=== PATIENT | female | born 1995 | race Caucasian/White ===

== ENCOUNTER 2023-06-01 13:36 | Outpatient (CLI) | payer BC, SELFPAY ==
--- NOTE | 2023-06-01 14:00 | US_ITS ---
Patient: ISAEL DE LOS SANTOS Facility:?[facility] RIS Patient ID:?[id number] Site Patient ID:?[id number]. Site :?[id number] Study:?US-OB Pelvis TRANSVAGINAL-06/01/2023 2:18:38 PM Ordering Physician:?NIURKA TAPIA Final Report: INDICATION: First trimester scan, establish dates. COMPARISON: None. TECHNIQUE: Real-time coates-scale imaging of the pelvis was performed. FINDINGS: Sonographic imaging demonstrates a single living intrauterine gestation. The embryo demonstrates a regular cardiac rate measuring 176 beats per minute. The embryo`s crown-rump length measurement of 2.5 cm corresponds to a gestational age of 9 weeks 2 days with a sonographic due date of 01/02/2024. There is a normal-appearing yolk sac. There are no gross abnormalities noted within the embryo at this early state of development. The gestational sac has a normal appearance. There is a 3.7 x 1.8 x 1.9 cm perigestational hemorrhage. The amount of fluid within the sac appears appropriate for gestational age. The cervix is closed. The myometrium appears normal. The ovaries are of normal size. Corpus luteal cyst left ovary measuring 2.2 cm. There are no suspicious fluid collections noted in the cul-de-sac. IMPRESSION: Gestational age calculated at 9 weeks 2 days with a sonographic due date of 01/02/2024. Lower uterine segment subchorionic hemorrhage measuring 3.7 x 1.8 x 1.9 cm. Dictated by Raoul Cadena MD @ 06/02/2023 8:50:11 AM Signed by:?Raoul Cadena MD @06/02/2023 8:50:11 AM (Electronic Signature)
== END 2023-06-01 13:37 | disposition home or self-care (01) ==
LOC: US 13:37
PROVIDERS: PCP Family Medicine; Visit Provider Advanced Practice Midwife
DX: Z34.91 Encounter for supervision of normal pregnancy, unspecified, first trimester (principal); O20.9 Hemorrhage in early pregnancy, unspecified; Z3A.09 9 weeks gestation of pregnancy
CPT/HCPCS: 76817; 87491; 87591

== ENCOUNTER 2023-06-09 09:41 | Outpatient (CLI) | payer BC, SELFPAY | END 2023-06-09 09:42 | disposition home or self-care (01) | LOC: NFLDREF 06-10 05:56 | PROVIDERS: PCP Family Medicine; Referring Provider Family Medicine; Visit Provider Advanced Practice Midwife | DX: Z34.91 Encounter for supervision of normal pregnancy, unspecified, first trimester (principal) | CPT/HCPCS: 82565; 82570; 84156; 84450; 84460; 84520; 86592; 86703; 86704; 86706; 86762; 86787; 86803; 86850; 86900; 86901; 87086; 87340 ==

== ENCOUNTER 2023-07-29 10:41 | Outpatient (CLI) | payer BC, SELFPAY | END 2023-07-29 10:42 | disposition home or self-care (01) | LOC: NFLDREF 10:42 | PROVIDERS: PCP Family Medicine; Visit Provider Obstetrics & Gynecology | DX: Z34.92 Encounter for supervision of normal pregnancy, unspecified, second trimester (principal); Z3A.17 17 weeks gestation of pregnancy | CPT/HCPCS: 81511 ==

== ENCOUNTER 2023-08-26 12:51 | Outpatient (CLI) | payer BC, SELFPAY ==
--- NOTE | 2023-08-26 13:00 | CRLHL7_ITS ---
For Patients: As a result of the Century Cures Act, medical imaging exams and procedure reports are released immediately into your electronic medical record. You may view this report before your referring provider. If you have questions, please contact your health care provider. INDICATION: Evaluate anatomy. COMPARISON: 06/01/2023 TECHNIQUE: Real time coates scale imaging of the fetus was performed as well as color Doppler analysis of the umbilical vessels. FINDINGS: Sonographic imaging demonstrates a single living intrauterine gestation. Fetus demonstrates a regular cardiac rate of 144 beats per minute. Fetus has a variable position. The placenta lies anteriorly without evidence of placenta previa. Placental edge 5.1 cm from the internal cervical os. Amniotic fluid volume appears normal. Single deepest vertical pocket: 4.0 cm. The cervix is closed and measures 4.6 cm in length. The composite ultrasound gestational age is calculated at 21 weeks 4 days with an estimated sonographic due date of 01/02/2024. The estimated weight is 439 grams which lies at the 71st %. The following biometric measurements were obtained: Biparietal diameter: 5.2 cm/21 weeks 5 days 69th% Head circumference: 19.6 cm/21 weeks 6 days 70th% Abdominal circumference: 16.1 cm/21 weeks 1 day 44th% Femur length: 3.8 cm/22 weeks 1 day 75th% The HC/AC ratio measures: 1.22 range (1.06-1.24) On anatomic survey, there is a normal appearance of the cerebral ventricles, cavum septi pellucidi, cisterna magna and cerebellum. The nose, lips, and facial profile appear normal. The cervical, thoracic and lumbar spine are well visualized and appear normal. There is a normal four-chamber heart view and the left and right ventricular outflow tracts appear normal. The diaphragm and stomach appear normal. The kidneys and bladder also appear normal. There is a normal three-vessel cord and cord insertion site. The four extremities appear normal. IMPRESSION: Normal OB ultrasound exam with concordance of clinical and sonographic dating. No intrinsic abnormalities noted on anatomic survey. Dictated by Raoul Cadena MD @ 08/28/2023 7:10:38 AM (Electronically Signed)
== END 2023-08-26 12:52 | disposition home or self-care (01) ==
LOC: US 12:51
PROVIDERS: PCP Family Medicine; Visit Provider Obstetrics & Gynecology
DX: Z34.92 Encounter for supervision of normal pregnancy, unspecified, second trimester (principal); Z3A.21 21 weeks gestation of pregnancy
CPT/HCPCS: 76805; 82570; 84156

== ENCOUNTER 2023-09-08 09:52 | Outpatient (CLI) | payer BC, SELFPAY | END 2023-09-08 09:53 | disposition home or self-care (01) | PROVIDERS: PCP Family Medicine; Visit Provider Obstetrics & Gynecology | DX: Z34.92 Encounter for supervision of normal pregnancy, unspecified, second trimester (principal); R10.11 Right upper quadrant pain; Z3A.23 23 weeks gestation of pregnancy | CPT/HCPCS: 82150; 83690; 84450; 84460 ==

== ENCOUNTER 2023-10-06 12:59 | Outpatient (CLI) | payer BC, SELFPAY | END 2023-10-06 13:00 | disposition home or self-care (01) | LOC: NFLDREF 10-11 11:07 | PROVIDERS: PCP Family Medicine; Referring Provider Family Medicine; Visit Provider Obstetrics & Gynecology | DX: Z34.82 Encounter for supervision of other normal pregnancy, second trimester (principal) | CPT/HCPCS: 86592 ==

== ENCOUNTER 2023-11-10 09:35 | Outpatient (CLI) | payer BC, SELFPAY ==
--- NOTE | 2023-11-10 09:45 | CRLHL7_ITS ---
For Patients: As a result of the Century Cures Act, medical imaging exams and procedure reports are released immediately into your electronic medical record. You may view this report before your referring provider. If you have questions, please contact your health care provider. HISTORY: Pre-existing hypertension. COMPARISON: Ob ultrasound from 08/26/2023. TECHNIQUE: Ultrasound examination of the is performed with transabdominal technique. A biophysical profile is also performed. FINDINGS: A single intrauterine gestation is seen in cephalic presentation with regular cardiac activity at 123 beats per minute. The placenta is anterior and is free of the cervical os. The placental grade is 0. The amniotic fluid volume is now increased. Single deepest vertical pocket: Mildly increased at 8.6 cm. TONYA: Mildly increased at 23.4 cm BPD: 8.7 cm 35 weeks 1 day HC: 32.4 cm 36 weeks 5 days AC: 30.6 cm 34 weeks 4 days. Greater than the 97th percentile FL: 6.2 cm 31 weeks 6 days The estimated age by ultrasound is 34 weeks 4 days, with an estimated date of delivery of 12/18/2023. This represents an increase in range of great compared with the clinical age of 32 weeks 0 days. The estimated date of delivery has advanced by 15 days compared to the previous ultrasound. The ultrasound ratios are normal. The estimated weight of 2400 grams is at the 95th percentile, representing new macrosomia. The biophysical profile score is 8/8, with no points off. IMPRESSION: 1. Single intrauterine gestation in cephalic presentation with regular cardiac activity. 2. Estimated gestational age is 34 weeks 4 days. 3. There has been an increase in rate of growth, with the estimated date of delivery advancing by 15 days. 4. Estimated weight of 2400 grams is at the 95th percentile, representing new macrosomia. 5. The biophysical profile score is 8/8, with no points off. Dictated by Jarred Fofana MD @ 11/10/2023 11:07:28 PM (Electronically Signed)
== END 2023-11-10 09:36 | disposition home or self-care (01) ==
LOC: US 09:35
PROVIDERS: PCP Family Medicine; Visit Provider Obstetrics & Gynecology
DX: O10.913 Unspecified pre-existing hypertension complicating pregnancy, third trimester (principal); O36.63X0 Maternal care for excessive fetal growth, third trimester, not applicable or unspecified; Z3A.35 35 weeks gestation of pregnancy
CPT/HCPCS: 76816; 76819; 82565; 82570; 84156; 84450; 84460; 84520

== ENCOUNTER 2023-11-17 09:41 | Outpatient (CLI) | payer BC, SELFPAY ==
--- NOTE | 2023-11-17 09:45 | CRLHL7_ITS ---
For Patients: As a result of the Century Cures Act, medical imaging exams and procedure reports are released immediately into your electronic medical record. You may view this report before your referring provider. If you have questions, please contact your health care provider. INDICATION: Hypertension COMPARISON: 11/10/2023 TECHNIQUE: Real time coates scale imaging of the fetus was performed. Without non-stress testing. FINDINGS: Sonographic imaging demonstrates a single living intrauterine gestation. Fetus demonstrates a regular cardiac rate of 134 beats per minute. Fetus has a transverse position, head maternal right. The amniotic fluid volume single deepest pocket measurement of 10.0 cm. TONYA 19.3 cm. The fetus was active and demonstrated normal breathing movements. There was normal flexion and extension of the trunk and extremities. IMPRESSION: Normal biophysical profile score of 8 out of 8. SDP 10.0 cm. TONYA 19.3 cm. Dictated by Raoul Cadena MD @ 11/17/2023 10:49:44 AM (Electronically Signed)
== END 2023-11-17 09:42 | disposition home or self-care (01) ==
LOC: US 09:41
PROVIDERS: PCP Family Medicine; Visit Provider Obstetrics & Gynecology
DX: O10.919 Unspecified pre-existing hypertension complicating pregnancy, unspecified trimester (principal)
CPT/HCPCS: 76819; 82565; 82570; 84156; 84450; 84460; 84520

== ENCOUNTER 2023-11-24 09:44 | Outpatient (CLI) | payer BC, SELFPAY ==
--- NOTE | 2023-11-24 09:45 | CRLHL7_ITS ---
For Patients: As a result of the Century Cures Act, medical imaging exams and procedure reports are released immediately into your electronic medical record. You may view this report before your referring provider. If you have questions, please contact your health care provider. INDICATION: Hypertension COMPARISON: 11/17/2023 TECHNIQUE: Real time coates scale imaging of the fetus was performed. Without non-stress testing. FINDINGS: Sonographic imaging demonstrates a single living intrauterine gestation. Fetus demonstrates a regular cardiac rate of 128 beats per minute. Fetus has a vertex position. The amniotic fluid volume appears normal and there is a single deepest pocket measurement of 7.1 cm. The fetus was active and demonstrated normal breathing movements. There was normal flexion and extension of the trunk and extremities. IMPRESSION: Normal biophysical profile score of 8 out of 8. Dictated by Raoul Cadena MD @ 11/24/2023 4:10:06 PM (Electronically Signed)
== END 2023-11-24 09:45 | disposition home or self-care (01) ==
LOC: US 09:44
PROVIDERS: PCP Family Medicine; Visit Provider Obstetrics & Gynecology
DX: O10.919 Unspecified pre-existing hypertension complicating pregnancy, unspecified trimester (principal)
CPT/HCPCS: 76819; 82565; 82570; 84156; 84450; 84460; 84520

== ENCOUNTER 2023-11-30 09:45 | Emergency (ER) | payer BC, SELFPAY ==
[2023-11-30 10:01] VITALS: BP 124/83; PULSE 99; RESP 18; TEMP 36.8; O2SAT 97; BMI 43.2
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
[2023-11-30 11:41] LABS: PCR FLU A Negative PCR FLU A (Negative); PCR FLU B Negative PCR FLU B (Negative); PCR RSV Negative PCR RSV (Negative); SARS PCR* Negative SARS-CoV-2 (Negative)
--- NOTE | 2023-11-30 15:40 | PC.OBNST ---
NST Note NST Note Start: 11/30/23 15:23 Freq: ONCE Status: Active Protocol: Document 11/30/23 11:50 J[facility] (Rec: 11/30/23 15:40 J[facility] Desktop) NST Note 4 Para (# of births) 2 EDC 12/05/23 Gestational Age In Weeks & Days 39 Weeks & 2 Days High Risk Factors High Blood Pressure - Preexisting Patient Presented with Complaint(s) of Other Other Complaints Pt. here for respiratory symptoms. Some abd discomfort with coughing. Reviewed [employer] with pt. she states she has an daniel on her phone. Reactive Yes Appropriate for Gestational Age Yes RODRIGO Anne RN Date 11/30/23 Reactive Yes Appropriate for Gestational Age Yes RODRIGO Zapata RNC Date 11/30/23 OB NST charge Yes Complete NST Note via Write Note Yes The provider's electronic signature indicates the NST is reactive/appropriate for gestational age. *Note to provider: If an addendum is required, open the patient's chart and click on the note under the Nurse/Allied Health tab.
== END 2023-11-30 12:06 | disposition home or self-care (01) ==
PROVIDERS: Emergency Provider Family Medicine
DX: R05.9 Cough, unspecified (principal); Z33.1 Pregnant state, incidental; Z3A.35 35 weeks gestation of pregnancy
CPT/HCPCS: 59025; 87631; 99283; 99284

== ENCOUNTER 2023-12-02 09:14 | Outpatient (CLI) | payer BC, SELFPAY ==
--- NOTE | 2023-12-02 09:15 | CRLHL7_ITS ---
For Patients: As a result of the Century Cures Act, medical imaging exams and procedure reports are released immediately into your electronic medical record. You may view this report before your referring provider. If you have questions, please contact your health care provider. INDICATION: Hypertension COMPARISON: 11/24/2023 TECHNIQUE: Real time coates scale imaging of the fetus was performed. Without non-stress testing. FINDINGS: Sonographic imaging demonstrates a single living intrauterine gestation. Fetus demonstrates a regular cardiac rate of 137 beats per minute. Fetus has a vertex position. The amniotic fluid volume appears normal and there is a single deepest pocket measurement of 6.8 cm. The fetus was active and demonstrated normal breathing movements. There was normal flexion and extension of the trunk and extremities. IMPRESSION: Normal biophysical profile score of 8 out of 8. Dictated by Raoul Cadena MD @ 12/04/2023 10:16:18 PM (Electronically Signed)
== END 2023-12-02 09:15 | disposition home or self-care (01) ==
LOC: US 09:14
PROVIDERS: Visit Provider Obstetrics & Gynecology
DX: O10.919 Unspecified pre-existing hypertension complicating pregnancy, unspecified trimester (principal)
CPT/HCPCS: 76819; 82565; 82570; 84156; 84450; 84460; 84520

== ENCOUNTER 2023-12-09 09:00 | Outpatient (CLI) | payer BC, SELFPAY ==
--- NOTE | 2023-12-09 09:15 | CRLHL7_ITS ---
For Patients: As a result of the Century Cures Act, medical imaging exams and procedure reports are released immediately into your electronic medical record. You may view this report before your referring provider. If you have questions, please contact your health care provider. INDICATION: HTN TECHNIQUE: Real time coates scale imaging of the fetus was performed. COMPARISON: 12/02/2023 FINDINGS: Sonographic imaging demonstrates a single living intrauterine gestation. Fetus demonstrates a regular cardiac rate of 127 beats per minute. Fetus has a vertex position. The placenta lies anteriorly. Amniotic fluid volume appears normal and there is a single deepest pocket of 6.4 cm. The estimated weight is 3173gm which lies at the 82nd %. On the prior OB ultrasound dated 11/10/2023 the estimated weight was at the 95th percentile. BPD greater than 97th percentile. HC 94th percentile. AC is 78th percentile. FL 58th percentile. The fetus was active and demonstrated normal breathing movements. There was normal flexion and extension of the trunk and extremities. IMPRESSION: Normal biophysical profile score 8/8. Sonographic gestational age 38 weeks 0 days and a sonographic due date of 12/23/2023. Sonographic age 13 days ahead of the clinical age. Estimated weight 82nd percentile. Abdominal circumference 78th percentile. BPD greater than 97th percentile. Dictated by Raoul Cadena MD @ 12/09/2023 10:46:32 AM (Electronically Signed)
== END 2023-12-09 09:01 | disposition home or self-care (01) ==
LOC: US 09:00
PROVIDERS: Visit Provider Obstetrics & Gynecology
DX: O10.913 Unspecified pre-existing hypertension complicating pregnancy, third trimester (principal); Z3A.38 38 weeks gestation of pregnancy
CPT/HCPCS: 76816; 76819; 82565; 82570; 84156; 84450; 84460; 84520; 87081; 87653

== ENCOUNTER 2023-12-11 23:10 | Outpatient (CLI) | payer BC, SELFPAY ==
[2023-12-11] VITALS (10 sets, daily range): BP systolic 155–161; BP diastolic 74–86; PULSE 76–87; O2SAT 95–98
[2023-12-11 23:57] LABS: Hematocrit 33.9 % (33.0-51.0); Mean Corpuscular HGB Conc 32 gm/dL (32-36); Mean Corpuscular Hemoglobin 25 pg (26-34); Mean Corpuscular Volume 76 fL (80-100); Platelet Count* 272 K/uL (140-440); Red Blood Count 4.47 m/uL (4.00-5.20); White Blood Count* 10.61 K/uL (4.50-11.00)
[2023-12-11 23:59] LABS: Slide Review Reflex No
[2023-12-12] VITALS (36 sets, daily range): BP systolic 108–147; BP diastolic 62–81; PULSE 73–96; O2SAT 98–99
[2023-12-12] MEDS: LABETALOL HCL 100 MG TABLET 200 MG PO (00:04)
[2023-12-12 00:14] LABS: Alanine Aminotransferase* 22 U/L (4-35); Aspartate Amino Transferase* 31 U/L (12-35); Blood Urea Nitrogen* 7 mg/dL (5-24); Creatinine* 0.5 mg/dL (0.5-1.5); Estimated Glomerular Filt Rate 131 ml/min
[2023-12-12 00:15] LABS: Creatinine Urine 130.1 mg/dL; Protein Creatinine Ratio Urine 0.06 (0-0.19); Total Protein Urine 8 mg/dL
--- NOTE | 2023-12-12 01:19 | CRLHL7_ITS ---
For Patients: As a result of the Century Cures Act, medical imaging exams and procedure reports are released immediately into your electronic medical record. You may view this report before your referring provider. If you have questions, please contact your health care provider. Indication: Difficult to monitor fetus Technique: Transabdominal pelvic ultrasound with evaluation of and maternal anatomy. Grayscale and color Doppler imaging utilized. Comparison: Ob ultrasound performed 3 days prior Findings: Single live intrauterine gestation noted. heart rate measures 112-133 bpm. Anterior placenta. Vertex fetus. BPP 8/8. Cervix not visualized. 6.4 centimeter largest amniotic fluid pocket. Impression: Single live intrauterine gestation. BPP 8/8. Dictated by Graeme Stratton MD @ 12/12/2023 3:11:33 AM (Electronically Signed)
--- NOTE | 2023-12-12 02:52 | PC.OBNST ---
NST Note NST Note Start: 12/11/23 23:13 Freq: ONCE Status: Active Protocol: Document 12/12/23 02:48 [facility] (Rec: 12/12/23 02:52 [facility] Desktop) NST Note 4 Para (# of births) 2 EDC 01/05/24 Gestational Age In Weeks & Days 36 Weeks & 4 Days High Risk Factors High Blood Pressure - Gestational Patient Presented with Complaint(s) of Headache Other Complaints Patient seen in triage for headache, RUQ pain, elevated BP's. Patient did not take evening dose of Labetalol, headache resolved. Reactive Yes Appropriate for Gestational Age Yes RODRIGO Pereyra RN Date 12/12/23 Reactive Yes Appropriate for Gestational Age Yes RODRIGO Paz MD reviewed FHR strip, BPP 10/05 Date 12/12/23 OB NST charge Yes Complete NST Note via Write Note Yes The provider's electronic signature indicates the NST is reactive/appropriate for gestational age. *Note to provider: If an addendum is required, open the patient's chart and click on the note under the Nurse/Allied Health tab.
== END 2023-12-12 02:35 | disposition home or self-care (01) ==
LOC: OB OUT 23:10 → OB 23:12
PROVIDERS: Visit Provider Obstetrics & Gynecology
DX: O13.3 Gestational [pregnancy-induced] hypertension without significant proteinuria, third trimester (principal); O26.893 Other specified pregnancy related conditions, third trimester; R51.9 Headache, unspecified; Z3A.36 36 weeks gestation of pregnancy
CPT/HCPCS: 36415; 59025; 76819; 82565; 82570; 84156; 84450; 84460; 84520; 85027; G0463; A9270

== ENCOUNTER 2023-12-15 17:43 | Inpatient (IN) | payer BC, SELFPAY ==
[2023-12-15] VITALS (8 sets, daily range): BP systolic 111–162; BP diastolic 60–85; PULSE 86–114; RESP 17; TEMP 36.6–36.8; O2SAT 97; BMI 43.4
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
[2023-12-15 19:14] LABS: Basophils Absolute Auto 0.03 K/uL (0.00-0.30); Basophils Percent Auto 0.3 % (0.0-3.0); Eosinophils Absolute Auto 0.09 K/uL (0.00-0.50); Eosinophils Percent Auto 0.9 % (0.0-7.0); Hematocrit 34.2 % (33.0-51.0); Hemoglobin* 11.1 gm/dL (12.0-16.0); Immature Granulocytes Abs Auto 0.07 K/uL (0.00-0.30); Immature Granulocytes Pct Auto 0.7 %; Lymphocytes Percent Auto 18.8 % (20-44); Mean Corpuscular HGB Conc 33 gm/dL (32-36); Mean Corpuscular Hemoglobin 25 pg (26-34); Mean Corpuscular Volume 76 fL (80-100); Monocytes Percent Auto 5.5 % (0.0-11.0); Neutrophils Percent Auto 73.8 % (42.0-72.0); Platelet Count* 270 K/uL (140-440); RDW Coefficient of Variation % 15.9 % (11.5-15.5); White Blood Count* 10.44 K/uL (4.50-11.00)
[2023-12-15 19:20] LABS: Slide Review Reflex No
[2023-12-15] MEDS: LACTATED RINGERS 1000 ML 1,000 ML 30 ML IV (23:56)
[2023-12-15] MEDS: OXYTOCIN 30 unit/500 ML in NS 30 UNIT/500 ML BAG IVPB (23:57)
[2023-12-16] VITALS (56 sets, daily range): BP systolic 82–143; BP diastolic 43–87; PULSE 48–118; TEMP 36.3–36.7; O2SAT 98–100
--- NOTE | 2023-12-16 07:35 | P.OBPN_ITS ---
Subjective Time Seen by Provider: 07:35 Date Seen: 12/16/23 Narrative: Subjective: Patient is comfortable comfortable with contractions, patient was asleep when myself and the nurse walked in. Pitocin: 6 milliunits/minute. Verbal consent obtained for artificial rupture of membranes if possible. Vital signs: Per electronic medical record. EFM: Baseline 130's, accelerations: present, decelerations: absent, moderate variability, reactive. Category 1. [place]: Contractions every 2-4 minutes. Patient not feeling most of these. SVE: 2 cm/70 %/-3. AROM not performed Assessment: 28-year-old 4 para 2 at 37 weeks 1 days gestation undergoing induction of labor for chronic hypertension with gestational exacerbation. Plan: 1. Continue Pitocin per labor induction protocol. 2. Considering epidural for labor analgesia. 3. Continue labetalol 200 mg p.o. b.i.d. Objective Vital Signs: Last Vital Signs Temp 97.8 F 12/16/23 06:57 Pulse 80 12/16/23 06:57 Resp 17 12/15/23 18:05 BP 133/74 12/16/23 06:57 Pulse Ox 97 12/15/23 19:21
[2023-12-16] MEDS: LABETALOL HCL 100 MG TABLET 200 MG PO ×2 (09:46→21:13)
--- NOTE | 2023-12-16 16:07 | PM.OBPNL ---
Subjective Time Seen by Provider: 14:15 Date Seen: 12/16/23 Narrative: Subjective: The patient is feeling more uncomfortable with contractions. Pitocin: 12 milliunits/minute. Artificial rupture of membranes occurred at 12:15 p.m. on 12/16/2023. Vital signs: Per electronic medical record. EFM: Baseline 135, positive accelerations, negative decelerations, model variability, reactive. Category 1. Attempted to place an FSE but was unable to successfully do this due to vertex being at a -3 station. [place]: Contractions every 2-5 minutes. IUPC placed. SVE: 3 cm/70%/-3. Assessment: 28-year-old 4 para 2 at 37 seconds weeks 1 days gestation undergoing induction of labor. Plan: 1. Continue Pitocin per labor induction protocol. 2. Considering epidural for labor analgesia. 3. Slow progress in early labor. Objective Vital Signs: Last Vital Signs Temp 97.3 F L 12/16/23 14:34 Pulse 69 12/16/23 11:56 Resp 17 12/15/23 18:05 BP 111/61 12/16/23 11:56 Pulse Ox 99 12/16/23 16:02
[2023-12-16] MEDS: LIDOCAINE 2% (PF) 5 ML VIAL EPIDURAL (16:10)
[2023-12-16] MEDS: ROPIVACAINE 0.2% 100 ml 100 ML 10 MG EPIDURAL (16:10)
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
[2023-12-16] MEDS: PHENYLEPHRINE 100 MCG/ML SYRINGE IVP (18:02)
[2023-12-16] MEDS: DULOXETINE 30 MG CAPSULE DR PO (21:13)
[2023-12-16] MEDS: AZITHROMYCIN 500 MG in 0.9 % SODIUM CHLORIDE 250 ml 250 ML 255 MG IVPB (23:15)
--- NOTE | 2023-12-16 23:18 | P.OBPN_ITS ---
Subjective Time Seen by Provider: 23:18 Date Seen: 12/16/23 Narrative: Subjective: Patient is comfortable w/ epidural. Pitocin: 13 milliunits/minute. Patient has had very slow progress in early labor. She has never had adequate labor even with Pitocin up to a maximum of 18 milliunits/ minute and the vertex has remained at a -3 station for the entire day. Vital signs: Per electronic medical record. EFM: Baseline 135, positive accelerations, negative decelerations, moderate variability, reactive. Category 1. [place]: Contractions every 3-5 minutes. [place] units 75-170/10 minutes SVE: 4 cm/70 %/-3. Assessment: 28-year-old 4 para 2011 at 37 weeks 1 days gestation undergoing induction of labor due to gestational exacerbation of chronic hypertension with arrest of dilation. Plan: 1. Discontinue Pitocin 2. Continue epidural for labor analgesia. 3. Arrest of dilation recommended primary low-transverse 4. Consent form reviewed and signed for primary low-transverse section Objective Vital Signs: Last Vital Signs Temp 97.8 F 12/16/23 21:20 Pulse 101 H 12/16/23 23:05 Resp 17 12/15/23 18:05 BP 107/55 L 12/16/23 23:05 Pulse Ox 100 12/16/23 16:42
--- NOTE | 2023-12-16 23:21 | P.PCN_ITS ---
Procedure Note Time Seen by Provider: 01:02 Date Seen: 12/17/23 Date of procedure: 12/17/23 Will [facility] bill your pro fee for this procedure?: Yes Procedure: Preoperative diagnosis: 28-year-old 4 para 2012 at 37 and 1/7 weeks * Chronic hypertension with gestational exacerbation * Arrest of dilation/unsuccessful induction of labor Postoperative diagnosis: Same Procedure: Primary low-transverse section Anesthesia: Epidural Surgeon: Kusum Montanez MD Pressurizer: N/A Quantitative blood loss: 426 mL IV Fluid: 700 mL UOP: 100 mL, clear urine at the end of the procedure Specimen: Placenta to pathology due to chronic hypertension Drain(s): Almodovar to gravity Indications: Arrest of dilation at 4 cm with vertex at -3 station. Findings: A live male infant was delivered from the LOT position at 12:26 a.m.. Apgars were 7 at 1 min, 7 at 5 min and 8 at 10 minutes, respectively. weight: 7 lb 4 oz. Nuchal cord(s): No. The placenta was delivered spontaneously and complete at 12:28 a.m. Amniotic fluid: Clear. Normal uterus, fallopian tubes and ovaries were noted. Other findings: None Procedure: Genie was taken to the OR where epidural anesthetic was found be adequate. A Almodovar catheter was placed. The patient was then placed in the dorsal supine position with a leftward tilt. She was then prepped and draped in a normal sterile manner. A Pfannenstiel skin incision was made and carried through sharply to the underlying layer of fascia. Fascia was incised in the midline and this incision carried laterally with Alfred scissors. The superior aspect of fascial incision was grasped with Chloe clamps, tented up, and the rectus muscles dissected off with a combination of blunt and sharp dissection. The inferior aspect of the fascial incision was grasped with Chloe clamps, tented up and again the rectus muscles dissected off with a combination of blunt and sharp dissection. The rectus muscles were in the midline. The peritoneum was entered bluntly. This opening was extended bluntly. An Jah-O self-retaining retractor was placed. A bladder flap was not created. Uterus was incised in a low transverse manner in the midline. This incision carried laterally with blunt pressure on the inferior and superior aspects of the uterine incision. The amniotic sac was ruptured. The infant's head and body was delivered atraumatically. The was shown to the patient and her support person and then handed to waiting pediatric and nursing staff. The placenta was delivered spontaneously. The uterus was cleared of clots and debris. The uterine incision was re-approximated with the uterus in vivo. The 1st layer using 0-Vicryl in a running, locked manner. The 2nd layer using 0- Monocryl in a running, vertical, imbricating layer. Additional sutures needed for hemostasis: No. Excellent hemostasis was verified. The Jah retractor was removed. The rectus muscles were not reapproximated. The rectus muscles were then closely inspected to verify hemostasis. Hemostasis was obtained with bipolar cautery. The fascia was then re-approximated using 0-Maxon loop in a running manner. The subcutaneous tissue was then irrigated with saline and hemostasis o btained with bipolar cautery. The subcutaneous tissue was re-approximated using 3-0 plain gut interrupted sutures. The skin was reapproximated using 4-0 Monocryl in a running subcuticular manner. A silver-containing dressing was applied. The patient tolerated this procedure well. Sponge, lap and instrument counts were correct x2 active to the procedure. Patient was taken to the recovery area in stable condition. The patient received 3 g of IV Ancef and 500 mg IV azithromycin prior to skin incision.
[2023-12-16] MEDS: ONDANSETRON 2 MG/ML inj 4 MG IV (23:31)
[2023-12-17] VITALS (41 sets, daily range): BP systolic 104–132; BP diastolic 52–85; PULSE 69–95; RESP 16; TEMP 36.4–36.8; O2SAT 95–100
[2023-12-17] MEDS: CEFAZOLIN 2 GM INJ 3 GM IVP (00:01)
--- NOTE | 2023-12-17 01:27 | W.ANESCHARGE ---
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
--- NOTE | 2023-12-17 01:28 | P.NB_ITS ---
Nerve Block Nerve Block Time Seen by Provider: 01:05 Date Seen: 12/17/23 Type of block requested by surgeon for post-operative analgesia: TAP Side: bilateral Time out performed: Yes Verification of patient name: Yes Verification of date of : Yes Site marking: site marked Name of person performing procedure: Stanley Fredo Continuous monitoring Was continuous monitoring of O2 sat, B/P, water system operator, recorded every 15 minutes?: Yes Procedure Checklist: sterile prep, needles and gloves Ultrasound guided. Images saved: Yes Medications given in 5ml increments after negative aspiration: Marcaine %: 0.25 mL: 30 Needle gauge: 21 and Exparel mL: 10 Needle gauge: 21 Patient tolerated procedure well: Yes Additional comments: Injected in 5mL increments after negative aspiration Block Charges Block Charge (with Pro Fee): TAP Bilateral Use of Ultrasound Machine for Block: Yes- US Guidance/pain block
[2023-12-17] MEDS: LACTATED RINGERS 1000 ML 1,000 ML 30 ML IV (01:31)
[2023-12-17] MEDS: KETOROLAC 30 MG/ML inj IVP ×3 (07:03→19:31)
[2023-12-17 07:07] LABS: Hemoglobin* 10.2 gm/dL (12.0-16.0)
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
[2023-12-17] MEDS: DOCUSATE SODIUM 100 MG CAPSULE PO (10:42)
[2023-12-17] MEDS: FERROUS SULFATE 325 MG TABLET PO (10:42)
[2023-12-17] MEDS: LABETALOL HCL 100 MG TABLET 200 MG PO ×2 (10:42→20:55)
[2023-12-17] MEDS: ENOXAPARIN 40 MG/0.4 ML INJ SUBCUT ×2 (10:42→20:56)
--- NOTE | 2023-12-17 11:19 | PM.ANPOST ---
Post Anesthesia Note Post Anesthesia Note Patient seen: Inpatient Respiratory Status: adequate Cardiovascular Status: adequate Mental Status: baseline Pain: adequate Temp: baseline Anesthetic awareness: N/A Complications: none Follow care: none
[2023-12-17] MEDS: DULOXETINE 30 MG CAPSULE DR PO (20:56)
[2023-12-18 01:09] LABS: Rapid Plasma Reagin (RPR) Non Reactive (Non Reactive)
[2023-12-18] MEDS: KETOROLAC 30 MG/ML inj IVP ×2 (01:38→07:33)
[2023-12-18 04:30] VITALS: BP 129/84; PULSE 86; RESP 16; TEMP 36.6; O2SAT 99
[2023-12-18 07:39] VITALS: BP 130/83; PULSE 80; RESP 16; TEMP 36.6; O2SAT 99
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
[2023-12-18] MEDS: DOCUSATE SODIUM 100 MG CAPSULE PO (10:08)
[2023-12-18] MEDS: LABETALOL HCL 100 MG TABLET 200 MG PO ×2 (10:08→21:34)
[2023-12-18] MEDS: ENOXAPARIN 40 MG/0.4 ML INJ SUBCUT (10:08)
[2023-12-18] MEDS: ACETAMINOPHEN 500 MG TABLET 1000 MG PO ×2 (11:05→18:18)
[2023-12-18] MEDS: IBUPROFEN 600 MG TABLET PO ×2 (14:01→20:09)
[2023-12-18 16:17] VITALS: BP 117/77; PULSE 100; RESP 16; TEMP 36.9; O2SAT 99
[2023-12-18 21:35] VITALS: BP 130/85; PULSE 83; RESP 16; TEMP 37.1
[2023-12-18] MEDS: DULOXETINE 30 MG CAPSULE DR PO (21:35)
[2023-12-19] MEDS: ACETAMINOPHEN 500 MG TABLET 1000 MG PO ×2 (00:38→06:07)
[2023-12-19] MEDS: ENOXAPARIN 40 MG/0.4 ML INJ SUBCUT ×2 (00:39→09:45)
[2023-12-19 00:44] VITALS: BP 122/77; PULSE 78; RESP 12; TEMP 36.6; O2SAT 96
[2023-12-19] MEDS: IBUPROFEN 600 MG TABLET PO ×2 (02:06→09:45)
[2023-12-19] MEDS: OXYCODONE 5 MG TABLET PO (06:07)
--- NOTE | 2023-12-19 07:14 | PM.OBDSVD1 ---
DS: Providers Provider Date Seen: 12/19/23 Date of admission: 12/15/23 17:43 Primary care physician: Not a Local Provider Admitting Clinician: Sangeetha Noe MD Attending Physician on discharge: Brenda Patel CNM DS: Diagnosis Discharge Diagnosis (1) care and examination immediately after delivery: Status: Acute (2) Wound disruption, post-op, skin: Status: Acute (3) Anemia associated with acute blood loss: Status: Acute (4) Chronic hypertension affecting : Status: Acute (5) Depression: Status: Acute (6) Anxiety: Status: Acute (7) Status post primary low transverse section: Status: Acute Exam Narrative: Exam Narrative: GENERAL APPEARANCE:? normal affect, alert, no distress MOOD:? appropriate CHEST:? clear to auscultation HEART:? regular rate and rhythm ABDOMEN:? soft, non-tender the uterine fundus is 1 below Umbilicus, Midline and is appropriate for the stage of recovery. EXTREMITIES:? normal and no edema INCISION: Silver dressing in place; Area of saturation outlined and unchanged, approximately 3/4 of dressing saturated but dry Const: Vital Signs, click to edit/add: Vital Signs - 24 hr 12/18/23 07:39 12/18/23 16:17 12/18/23 21:35 Temperature 97.8 F 98.4 F 98.7 F Pulse Rate [Pulse Oximeter] 80 100 83 Respiratory Rate 16 16 16 Blood Pressure [Le ft Arm] 130/83 117/77 130/85 Pulse Oximetry 99 99 Oxygen Delivery Me thod Room Air Room Air Room Air 12/19/23 00:44 Temperature 97.9 F Pulse Rate [Pulse Oximeter] 78 Respiratory Rate 12 Blood Pressure [Le ft Arm] 122/77 Pulse Oximetry 96 Oxygen Delivery Me thod Room Air Documenting provider has reviewed patient's vital signs: yes OB - DS: Summary Hospital Course Hospital Course: Genie is a 28 y.o. G 4 P 3 who was admitted to [facility] for induction of labor for uncontrolled CHTN on medications. ?She had a primary section that was uncomplicated. The patient feels well. ?The pain is well controlled with current medications. ?She has no new complaints. ?She is breast feeding and reports things are going well. the patient has done well.? Vitals have been stable.? She has remained afebrile.? Has a good appetite, is tolerating a general diet. ?She is voiding without difficulty.? She is passing gas and has not had a bowel movement.? She is ambulating and denies any dizziness. On Tuesday, her incision had opened, was draining, and the dressing had fallen off. It was redressed with steri strips and a new silver nitrate dressing by Dr. Aguirre. Has small amount of rubra lochia. She is planning condoms for prevention. Problems: Anemia plan: Discharge home with baby. Follow up in 2 weeks and 6 weeks. , may see if needed Hgb 10.2. Iron supplement ordered orally every other day Chronic HTN, stable Labs WNL Discharge home with BP cuff if does not already have one Follow up in 3-5 days Call for signs/symptoms of preeclampsia Silver nitrate dressing in place. Removal in clinic at on day [address] Noe who was asked to see patient. She elected to replace dressing. See her note for further details. Patient will return for dressing removal this Tuesday. Peripartum Data delivery method: Primary C/S; Labored Procedures: Procedures Operation Date: 12/17/23 00:30 Actual Procedure Side Surgeon p PRIMARY LOW TRANSVERSE Section Not Applicable Kusum Montanez MD complications: none [facility] Infant Gender: Male Infant Discharge Plan: Home Status at Discharge Functional status at discharge: independent ambulation Overall status at discharge: patient is progressing back to baseline Time Spent with Patient Time attestation: Total time spent providing and/or coordinating discharge services: Time spent: Less than 30 minutes Discharge Plan Discharge Disposition: Home, Self-Care Date of Admission: 12/15/23 17:43 Attending Provider on Discharge: Brenda Patel Primary Care Provider: Provider,Not a Local Condition: Stable Anticipated Discharge Date/Time: 12/19/23 12:00 Discharge Medications: New acetaminophen 500 mg Tablet 1,000 mg PO Q6H PRN (Reason: Pain) Qty: 0 0RF docusate sodium 100 mg Capsule 100 mg PO BID PRNQty: 90 0RF ibuprofen 600 mg Tablet 600 mg PO Q6H PRN (Reason: Pain) Qty: 60 0RF labetalol 200 mg tablet 200 mg PO BID Qty: 60 0RF oxycodone 5 mg Tablet 5 - 10 mg PO Q4H PRN (Reason: Pain) Qty: 15 0RF Continued (DME) blood pressure kit med and lrg Kit See Rx Instructions .Route Qty: 1 0RF Rx Instructions: As directed duloxetine 30 mg capsule,delayed release(DR/EC) 30 mg PO QDAY cholecalciferol (vitamin D3) 50 mcg (2,000 unit) capsule 50 mcg PO QDAY ferrous sulfate 325 mg (65 mg iron) tablet 325 mg PO QMWF Qty: 60 0RF Discontinued acetaminophen [Tylenol Extra Strength] 500 mg tablet 500 mg PO Q6H PRN aspirin [Adult Low Dose Aspirin] 81 mg tablet,delayed release (DR/EC) 81 mg PO QDAY labetalol 100 mg tablet 200 mg PO BID Discharge Orders: Discharge Order (Routine); Ordered 12/19/23 Ordered By: Brenda Patel Patient Education: OB Over the Counter Medication Information, OB /Breast Feeding Additional Instructions: Discharge instructions were reviewed with the patient including signs and symptoms of infection and home going medications Lifting Restrictions: 20 pounds for 6 weeks No not submerge incision under water X 2 weeks? Nothing vaginally for 6 weeks: no tampons or intercourse Do not drive while taking narcotic pain medication(s) Off Work or School for 8 weeks [facility] for [facility] BP check?in 3-5 days Call with: BP greater than or equal to 160/110 Severe headache that doesn't improve after taking medications Changes in vision, including temporary loss of vision, blurred vision, and/or light sensitivity Upper abdominal pain (usually under ribs on the right side) 1- week incision check for silver nitrate dressing removal 2-week visit: incision check, discuss infant feeding concerns, review control options and screen for anxiety/depression. 6-week visit for an annual exam. consultation services are available to all mothers and babies for the first year after delivery.? To make an appointment, please call [phone]. Activity Level: Activity as Tolerated Discharge Diet: Regular Follow Up Appointments: [facility] [Provider Group] Forms: MyHealth Info Instructions
[2023-12-19] MEDS: LABETALOL HCL 100 MG TABLET 200 MG PO (09:45)
[2023-12-19] MEDS: FERROUS SULFATE 325 MG TABLET PO (09:45)
[2023-12-19 09:49] VITALS: BP 117/83; PULSE 82; RESP 16; O2SAT 97
--- NOTE | 2023-12-19 10:56 | PM.EN ---
Chart Event Note Time Seen by Provider: 09:00 Date Seen: 12/19/23 Chart Event Note: Requested to exam patient's dressing by CNM. Genie is moving well and report that pain is well controlled. She had just finished her shower when I came to exam her. Abdomen: Soft, nontender, non distended. No guarding or rebound. INCISION: 3/4 of dressing was saturated but did not extend beyond marked border as of last night. Right corner seal was broken so dressing was removed. Steri strips came of with silver dressing. Incision itself looked clean, dry and intact without erythema or induration. Minimal drainage from right corner and middle of incision. Incision was cleaned with gauze. New steri strips applied and new silver dressing placed. Wound care discussed with patient. Plan: - BP check and dressing removal Tuesday
== END 2023-12-19 12:50 | disposition home or self-care (01) | DRG 540 ==
PROVIDERS: Obstetrics & Gynecology; Admitting Provider Obstetrics & Gynecology; Visit Provider Obstetrics & Gynecology
PROC: (CPT 59514; principal; 2023-12-17 00:15)
DX: O61.0 Failed medical induction of labor (principal); O10.02 Pre-existing essential hypertension complicating childbirth; Z3A.37 37 weeks gestation of pregnancy; Z37.0 Single live birth; O99.02 Anemia complicating childbirth; D64.9 Anemia, unspecified; O99.344 Other mental disorders complicating childbirth; F41.9 Anxiety disorder, unspecified; F32.A Depression, unspecified; T81.31XA Disruption of external operation (surgical) wound, not elsewhere classified, initial encounter; D62 Acute posthemorrhagic anemia; G89.18 Other acute postprocedural pain
CPT/HCPCS: 01961; 01967; 36415; 59200; 64488; 76815; 76819; 76942; 82565; 82570; 84156; 84450; 84460; 84520; 85018; 85025; 86592; 86850; 86900; 86901; 88307; 99140; A9270; C1726; C9290; J0456; J0665; J0690; J1100; J1650; J1885; J2274; J2371; J2405; J2590; J2704; J2795; J7050; J7120